=== PATIENT | female | born 1990 | race Caucasian/White ===

== ENCOUNTER 2017-09-03 19:39 | Emergency (ER) | payer SELFPAY ==
[~2017-09-03 19:39] MED LIST: Birth Control; CALCIUM600 M2 PO; FOLIC ACID0.4 MG PO; NO HOME MEDICATIONS; RITE AID IRON PO; VITAMIN C500 MG PO
[2017-09-03 19:43] VITALS: BP 128/72; TEMP 99
[2017-09-03] MEDS ORDERED: FLEXERIL 1010 MG/TAB PO (20:54)
[2017-09-03 21:25] VITALS: PULSE 80
== END 2017-09-03 21:25 | disposition home or self-care (01) ==
LOC: COL.ER 19:39
DX: S60.222A Contusion of left hand, initial encounter (principal); S80.02XA Contusion of left knee, initial encounter; S16.1XXA Strain of muscle, fascia and tendon at neck level, initial encounter; F17.210 Nicotine dependence, cigarettes, uncomplicated; V40.5XXA Car driver injured in collision with pedestrian or animal in traffic accident, initial encounter
CPT/HCPCS: J1885; L1830

== ENCOUNTER 2018-07-19 19:57 | Emergency (ER) | payer OTHER ==
[~2018-07-19] VITALS: Ht 180.3 cm; Wt 72.7 kg
[~2018-07-19 19:57] MED LIST changes: +FLEXERIL 1010 MG/TAB PO
[2018-07-19 20:06] VITALS: BP 122/60; TEMP 97.9
[2018-07-19 21:38] VITALS: PULSE 100
== END 2018-07-19 21:39 | disposition home or self-care (01) ==
LOC: COL.ER 19:57
DX: S93.402A Sprain of unspecified ligament of left ankle, initial encounter (principal); F17.210 Nicotine dependence, cigarettes, uncomplicated; X50.0XXA Overexertion from strenuous movement or load, initial encounter; Y92.481 Parking lot as the place of occurrence of the external cause

== ENCOUNTER → 2020-02-08 | Outpatient (CLI) | payer BC ==
[2020-02-08 20:28] LABS: HEMATOCRIT 43.1 % (37.0-47.0); HEMOGLOBIN 14.1 g/dl (12.5-16.0); MEAN CELL VOLUME 91 fl (80.0-100.0); MEAN CORPUSCULAR HEMOGLOBIN 30 pg (27.0-31.0); MEAN CORPUSCULAR HGB CONC 33 g/dl (33.0-37.0); MEAN PLATELET VOLUME 9.8 fl (7.4-10.4); PLATELET COUNT 330 K/mm3 (130-400); RED BLOOD COUNT 4.72 M/mm3 (4.10-5.30); REDCELL DISTRIBUTION WIDTH-CV 12.7 % (11.5-14.5)
[2020-02-08 20:40] LABS: ALBUMIN 4.5 gm/dL (3.5-5.0); BILIRUBIN,TOTAL 0.7 mg/dL (0.0-1.0); CALCIUM 9.3 mg/dL (8.4-10.2); CREATININE, serum 0.68 (0.52-1.25); MAGNESIUM 2.1 mg/dL (1.6-2.3); POTASSIUM 4.3 mmol/L (3.4-5.0); TOTAL PROTEIN 7.8 gm/dL (6.4-8.2)
[2020-02-08 21:10] LABS: TSH w REFLEX 0.889 uIU/mL (0.465-4.680)
== END ==
LOC: COL.LAB 19:56
PROVIDERS: Internal Medicine
DX: R53.83 Other fatigue (principal)

== ENCOUNTER 2020-12-12 06:15 | Inpatient (IN) | payer OTHER ==
[2020-12-12] VITALS (40 sets, daily range): BP systolic 94–1118; BP diastolic 53–80; PULSE 63–101; TEMP 98.2–98.6
[~2020-12-12] VITALS: Ht 180.3 cm; Wt 103.2 kg
[~2020-12-12 06:15] MED LIST changes: -IBU600 MG PO; -ZOLOFT 25MG25 MG PO
--- NOTE | 2020-12-12 06:20 | NUR ---
0620- 40.6, G1L0, arrives on unit for scheduled IOL. To LDR5 with SO. Oriented to room and plan of care. Patient reports normal movement, and irregular contractions. Denies any LOF, or VB. Changes into clean gown. 0635- EFM explained and placed x2. Consent forms explained and signed. Assessment completed. 0645- IV to left FA. Routine labs obained. IVF infusing. 0700- Pitocin explained and started at 2mu per orders.
[2020-12-12 07:08] LABS: BASO % 0.4 % (0.0-2.0); EOS # 0.1 (0.0-0.7); EOS % 1.4 % (0-4.0); GRAN # 6.1 (1.4-6.5); GRAN % 66.7 % (42.2-75.2); HEMATOCRIT 37.9 % (37.0-47.0); HEMOGLOBIN 12.3 g/dl (12.5-16.0); LYMPH % 22.1 % (20.0-51.0); MEAN CELL VOLUME 92 fl (80.0-100.0); MEAN CORPUSCULAR HEMOGLOBIN 30 pg (27.0-31.0); MEAN CORPUSCULAR HGB CONC 33 g/dl (33.0-37.0); MEAN PLATELET VOLUME 10.9 fl (7.4-10.4); MONO # 0.8 (0.1-0.6); PLATELET COUNT 285 K/mm3 (130-400); RED BLOOD COUNT 4.13 M/mm3 (4.10-5.30); REDCELL DISTRIBUTION WIDTH-CV 13.8 % (11.5-14.5)
[2020-12-12] MEDS ORDERED: ZOLOFT 25MG25 MG PO (07:17)
--- NOTE | 2020-12-12 09:30 | NUR ---
0930- Patient requesting epidural. Nicola Maurciebs [employer] on unit and notified. 0940- Patient assisted to edge of bed for epidural placement. FHR tracing intermittently due to maternal position. RN remains at bedside adj. EFM. 0945- Pitocin paused. 0951- Patient wedge left. EFM adjusted and tracing well. Pitocin resmued. Plan of care and safety precautions reviewed with patient and SO who verbalize understanding. Denies questions or needs at this time.
--- NOTE | 2020-12-12 12:45 | NUR ---
1245- Patient reports increased rectal pressure. SVE C/0. Dr. Coughlin updated. See physician notification. 1255- Patient begins to push with RN at bedside. Strong maternal effort noted. Moves vertex well. 1307- Dr. Coughlin updated on patient. See physician notification. Patient encouraged to breath through contractions. 1323- Dr. Coughlin at bedside. Patient begins to push with ctx with Dr. Coughlin at bedside. Moves vertex well. 1334- Spontaneous vaginal delivery of viable male . Nuchal cord x1, and delivers through. True knot noted. to mother's chest where dried and stimulated. Care of assumed by Quentin Negrete RN. 1336- Cord clamped x2 and cut by father of . 1339- Spontaneous and intact delivery of placenta. 3rd degree perineal laceration repaired by Dr. Coughlin. 1400- Straight cath by Dr. Coughlin. Fundus firm, midline, and bleeding minimal. Tran care provided, and ice pack to perineum. Plan of care and safety precautions reviewed with patient and SO who verbalize understanding. Denies questions or needs at this time. See doctor dictation, anesthesia record, and nurses notes.
[2020-12-13] VITALS: BP 117/57; PULSE 71; TEMP 98.4
[2020-12-13 04:10] VITALS: BP 125/66; PULSE 74; TEMP 98.2
[2020-12-13 07:45] VITALS: BP 118/74; PULSE 79; TEMP 97.7
[2020-12-13] MEDS ORDERED: IBU600 MG PO (08:51)
--- NOTE | 2020-12-13 09:27 | NUR ---
Initial visit; Patient thanked [employer] for offering congratulations and God's blessings for the of her son. [employer] wished patient well.
[2020-12-13 13:00] VITALS: BP 119/59; PULSE 71
== END 2020-12-13 16:10 | disposition home or self-care (01) | DRG 768 ==
LOC: OB 06:15 → LDR 06:15 → OB 11:50
PROVIDERS: ADMIT Obstetrics & Gynecology
PROC: 10E0XZZ Delivery of Products of Conception, External Approach (ICD-10-PCS; principal; 2020-12-12)
PROC: 10907ZC Drainage of Amniotic Fluid, Therapeutic from Products of Conception, Via Natural or Artificial Opening (ICD-10-PCS; 2020-12-12)
PROC: 3E033VJ Introduction of Other Hormone into Peripheral Vein, Percutaneous Approach (ICD-10-PCS; 2020-12-12)
PROC: 0DQR0ZZ Repair Anal Sphincter, Open Approach (ICD-10-PCS; 2020-12-12)
DX: O48.0 Post-term pregnancy (principal); Z37.0 Single live birth; O70.20 Third degree perineal laceration during delivery, unspecified; Z3A.40 40 weeks gestation of pregnancy; O99.62 Diseases of the digestive system complicating childbirth; K21.9 Gastro-esophageal reflux disease without esophagitis; O69.2XX0 Labor and delivery complicated by other cord entanglement, with compression, not applicable or unspecified; O69.81X0 Labor and delivery complicated by cord around neck, without compression, not applicable or unspecified
CPT/HCPCS: J2590; J7120

== ENCOUNTER → 2020-12-12 | Outpatient (CLI) | payer OTHER ==
[~2020-12-12] MED LIST changes: +IBU600 MG PO; +ZOLOFT 25MG25 MG PO
== END | disposition still patient (30) ==
LOC: ZCOL.LAB
DX: Z20.822 Contact with and (suspected) exposure to COVID-19 (principal)